=== PATIENT | female | born 1980 | race Caucasian/White ===

== ENCOUNTER → 2018-03-16 11:52 | Outpatient (CLI) | payer BC, SELFPAY ==
--- NOTE | 2018-03-16 11:59 | XR_ITS ---
XR chest 2V HISTORY: ITS.REASON: cough, SOA ORDERING PHYSICIAN: PRISCILLA Rajput PATIENT AGE: 37 years COMPARISON: None FINDINGS: The cardiomediastinal silhouette and pulmonary vascularity are within normal limits. The lungs are clear without infiltrates, suspicious nodules, or pleural effusions. Scattered small calcified granulomas are present bilaterally No acute bony abnormalities. IMPRESSION: Negative chest, no acute finding
[2018-03-16 18:05] LABS: Basophils # 0.1 K/mm3 (0-0.2); Basophils % 0.5 % (0.1-2.0); Eosinophils # 0.3 K/mm3 (0.0-0.4); Eosinophils % 3.1 % (0.1-12.0); Hematocrit 51.5 % (37.0-47.0); Hemoglobin 16.2 g/dL (12.2-16.2); Lymphocytes # 2.9 K/mm3 (0.7-4.5); Lymphocytes % 29.9 K/mm3 (10-50); Mean Corpuscular HGB Conc 31.5 g/dL (31.8-35.4); Mean Corpuscular Hemoglobin 29.6 pg (27.0-31.2); Mean Platelet Volume 9.3 fl (7.4-10.4); Monocytes # 0.5 K/mm3 (0.1-1.0); Monocytes % 5.5 % (1.7-9.3); Neutrophils # 5.9 K/mm3 (1.8-7.8); Platelet Count 346 K/mm3 (142-424); Red Blood Count 5.48 M/mm3 (4.20-5.40); Red Cell Distribution Width 14.1 % (11.5-17.5); White Blood Count 9.7 K/mm3 (4.8-10.8)
[2018-03-16 18:57] LABS: Alanine Aminotransferase 24 U/L (12-78); Albumin Level 4.1 gm/dL (3.4-5.0); Albumin/Globulin Ratio 1.2 (1.1-1.8); Alkaline Phosphatase 99 U/L (46-116); Anion Gap 20.4 mEq/L (5-15); Aspartate Amino Transferase 11 U/L (15-37); Bilirubin,Total 0.4 mg/dL (0.2-1.0); Blood Urea Nitrogen 6 mg/dL (7-18); Calcium 9.6 mg/dL (8.5-10.1); Carbon Dioxide 21 mmol/L (21.0-32.0); Chloride 105 mmol/L (98-107); Chol/HDL Ratio 3.7 (1-3.5); Cholesterol 172 mg/dL (140-200); Creatinine,Serum 0.72 mg/dL (0.55-1.02); Estimated Glomerular Filt Rate 92 ml/min (>60); GFR (African American) 111 ML/MIN (>60); Globulin 3.4 gm/dl (1.3-3.2); Glucose 139 mg/dL (74-106); HDL Cholesterol 47 mg/dL (29-89); LDL Cholesterol 105 mg/dL (0-130); Potassium 4.4 mmoL/L (3.5-5.1); Sodium 142 mmol/L (136-145); T4 (Thyroxine) 8.8 ug/dl (4.7-13.3); Thyroid Stimulating Hormone 1.14 uIU/ml (0.358-3.740); Total Protein,Serum 7.5 gm/dL (6.4-8.2); Triglycerides 101 mg/dL (30-200); VLDL Cholesterol 20 mg/dL (0-40)
[2018-03-20 05:16] LABS: Estrogen 232 pg/mL (.)
[2018-03-20 05:17] LABS: FSH 3.2 mIU/mL (.); LH 1.2 mIU/mL (.)
== END ==
LOC: LAB 11:54 → RAD 12:00
PROVIDERS: PCP Physician Assistant; Visit Provider Physician Assistant
DX: E86.0 Dehydration (principal); R05 Cough
CPT/HCPCS: 71046; 80053; 80061; 82672; 83001; 83002; 84403; 84436; 84443; 85025

== ENCOUNTER 2018-03-29 11:40 | Outpatient (RCR) | payer BC, SELFPAY | END 2018-04-05 10:10 | disposition home or self-care (01) | LOC: PT 11:40 | PROVIDERS: Family Provider Physician Assistant; PCP Physician Assistant; Visit Provider Orthopaedic Surgery | DX: S82.891A Other fracture of right lower leg, initial encounter for closed fracture (principal) | CPT/HCPCS: 97760 ==

== ENCOUNTER → 2018-04-11 14:55 | Outpatient (CLI) | payer BC, SELFPAY ==
[2018-04-11 15:30] LABS: Basophils % 0.4 % (0.1-2.0); Eosinophils # 0.1 K/mm3 (0.0-0.4); Eosinophils % 0.6 % (0.1-12.0); Hematocrit 49.3 % (37.0-47.0); Hemoglobin 16.1 g/dL (12.2-16.2); Lymphocytes % 19.2 K/mm3 (10-50); Mean Corpuscular HGB Conc 32.6 g/dL (31.8-35.4); Mean Corpuscular Hemoglobin 29.6 pg (27.0-31.2); Mean Corpuscular Volume 90.8 fl (81-99); Mean Platelet Volume 7.6 fl (7.4-10.4); Monocytes # 0.7 K/mm3 (0.1-1.0); Monocytes % 6.5 % (1.7-9.3); Neutrophils # 7.6 K/mm3 (1.8-7.8); Neutrophils % 73.3 % (37.0-80.0); Platelet Count 369 K/mm3 (142-424); Red Blood Count 5.43 M/mm3 (4.20-5.40); Red Cell Distribution Width 13.6 % (11.5-17.5); White Blood Count 10.4 K/mm3 (4.8-10.8)
[2018-04-11 16:37] LABS: Adenovirus F 40/41, stool Not Detected (NotDetected); Astrovirus Not Detected (NotDetected); Campylobacter Not Detected (NotDetected); Clostridium Difficile A/B, PCR Not Detected (NotDetected); Cryptosporidium Not Detected (NotDetected); Cyclospora Cayetanesis Not Detected (NotDetected); Entamoeba histolytica Not Detected (NotDetected); Enteroaggregative E coli Not Detected (NotDetected); Enterotoxigenic E coli Not Detected (NotDetected); Giardia lamblia Not Detected (NotDetected); Norovirus Not Detected (NotDetected); Plesimonas Shigalloides, PCR Not Detected (NotDetected); Rotavirus A Not Detected (NotDetected); Salmonella, PCR Not Detected (NotDetected); Sapovirus Not Detected (NotDetected); Shiga-like toxin E coli Not Detected (NotDetected); Shigella Enterovasive E coli Not Detected (NotDetected); Vibrio Cholerae Not Detected (NotDetected); Vibrio, PCR Not Detected (NotDetected); Yersinia Entercolitica, PCR Not Detected (NotDetected)
[2018-04-11 16:52] LABS: Erythrocyte Sedimentation Rate 10 mm/hr (0-20)
[2018-04-11 17:43] LABS: Alanine Aminotransferase 26 U/L (12-78); Albumin Level 4.3 gm/dL (3.4-5.0); Albumin/Globulin Ratio 1.2 (1.1-1.8); Alkaline Phosphatase 104 U/L (46-116); Anion Gap 18.5 mEq/L (5-15); Aspartate Amino Transferase 17 U/L (15-37); Bilirubin,Total 0.5 mg/dL (0.2-1.0); Blood Urea Nitrogen 10 mg/dL (7-18); Calcium 9.5 mg/dL (8.5-10.1); Carbon Dioxide 25 mmol/L (21.0-32.0); Chloride 99 mmol/L (98-107); Creatinine,Serum 0.71 mg/dL (0.55-1.02); Estimated Glomerular Filt Rate 93 ml/min (>60); GFR (African American) 113 ML/MIN (>60); Globulin 3.6 gm/dl (1.3-3.2); Glucose 113 mg/dL (74-106); Potassium 3.5 mmoL/L (3.5-5.1); Sodium 139 mmol/L (136-145); Total Protein,Serum 7.9 gm/dL (6.4-8.2)
[2018-04-11 20:46] LABS: Enteropathogenic E coli Detected (NotDetected)
[2018-04-14 19:16] LABS: Arsenic, Blood 7 ug/L (2-23); Lead, Blood 1 ug/dL (0-4); Mercury, Blood 1.2 ug/L (0.0-14.9)
== END ==
PROVIDERS: PCP Emergency Medicine; Visit Provider Emergency Medicine
DX: R11.2 Nausea with vomiting, unspecified (principal); R19.7 Diarrhea, unspecified
CPT/HCPCS: 80053; 82175; 83655; 83825; 85025; 85651; 87507

== ENCOUNTER → 2018-07-24 08:47 | Outpatient (CLI) | payer BC, SELFPAY ==
--- NOTE | 2018-07-24 08:50 | MR_ITS ---
MR foot RT wo con Ordering Physician: Arnaldo Ferreira Patient Age: 38 years: Female HISTORY. Fibular fracture March 2018. Has had right foot pain since then. Pain is at the lateral foot extends up towards lateral ankle joint..: .: RIGHT FOOT PAIN TECHNIQUE: Multiplanar multisequence imaging 1.5 MR. COMPARISON : March 27, 2018 right ankle 3 views FINDINGS Healing spiral fracture at the distal fibular shaft is evident.. Good position with mild residual bone edema about this healing fracture. Mild cortical thickening reflecting healing bone noted.. The . On also note Mild Bone Edema Anterior Lateral Aspect Calcaneus,--most pronounced beneath & just anterior to the angle of Gissane where there is a a Small 4-5 mm osteochondral defect &/subchondral irregularity. (Best seen on coronal image 40 sagittal slice 16,). Mild diffuse surrounding the bone edema beneath this area... Most evident extending anterior & lateral from this region.. These findings compatible with compatible with additional bone injury here at the subtalar joint.... Cortical margin otherwise remains congruent. . Cuneiforms appear intact and unremarkable. Metatarsals appear intact slight unremarkable. MTP joints intact with only borderline narrowing first MTP joint. What is seen at toes, grossly unremarkable. There is some field inhomogeneous on this scan which limits visualization of toes. Suggestion of mild pes planus on these views. Correlation required. -- . Increased fluid ankle joint. This Ankle Joint Effusion yields diffuse fluid bulging anterior to the joint,; as well as fluid extending posteriorly-surrounding the small os trigonum, & extending along the superior margin of calcaneus just posterior to the ankle joint & subtalar joint... Ankle mortise itself appears intact with normal relationships. Dome of talus intact. Only some mild chondral thinning or edema at the lateral corner talus and question of consultation along. Along lateral margin of talus. The anterior talofibular ligament thin but I believe remains intact..Although initially questionable I believe on axial image 8, 9 the anterior talofibular ligament most likely intact. ( I would note that this was a MRI of the foot rather than ankle and thus are images are not optimized for visualizing the smaller structures ).. Anteriorly the Fibular calcaneal ligament perhaps mildly thickened possibly reflecting prior injury . The posterior talofibular ligament and tibiofibular ligaments intact.. . interosseous ligament and relationships appear intact. . Medial tendons Tibialis posterior tendon appears intact.. Upper normal signal at the generous os navicularis & posterior tibialis tendon insertion.., Axial image 18,. There is some minimal fluid which follows along the flexor hallucis longus tendon beneath the foot. The tendon here itself I believe intact. Peroneal tendons . Peroneus longus not optimally seen but but I believe intact. There is suggestion of slight increased signal at the peroneus brevis tendon as it passeslateral to the calcaneus (axial image 13 & corresponding views) . Nonspecific. Could merely reflect reflect magic angle artifact rather than peroneus brevis interstitial tear/injury. Clinical correlation required here IMPRESSION: 1. Healing spiral fracture distal fibula shaft.... Good healing & Good position. Mild residual bone edema 2. Small subtalar osteochondral defect/irregularity at angle of Gissane-with surrounding bone edema at calcaneus .With this feature, bone edema most evident throughout the anterior/lateral calcaneus beneath subtalar joint, as well as minimal bone edema extending through to its its articulation with cuboid.. .This likely reflects healing additional bone injury/bone contusion at this si
== END ==
PROVIDERS: PCP Physician Assistant; Visit Provider Orthopaedic Surgery Adult Reconstructive Orthopaedic Surgery
DX: M79.671 Pain in right foot (principal)
CPT/HCPCS: 73718

== ENCOUNTER → 2019-03-06 17:09 | Outpatient (CLI) | payer BC, SELFPAY ==
[2019-03-06 19:42] LABS: Amphetamine/Metha Screen,Urine Negative ng/mL (<1000); Barbiturates Screen,Urine Negative ng/mL (<200); Benzodiazepines Screen,Urine Negative ng/mL (<200); Cannabinoid Screen,Urine Negative ng/mL (<50); Cocaine Screen,Urine Negative ng/mL (<300); Methadone Screen,Urine Negative ng/mL (<300); Opiate Screen,Urine Negative ng/mL (<300); Phencyclidine Screen,Urine Negative ng/mL (<25)
== END ==
PROVIDERS: Visit Provider Nurse Practitioner Family
DX: Z79.899 Other long term (current) drug therapy (principal)
CPT/HCPCS: 80305

== ENCOUNTER 2020-03-13 08:40 | Day surgery (SDC) | payer BC, SELFPAY ==
[2020-03-12 11:31] VITALS: BMI 32.8
[2020-03-13 10:22] VITALS: BP 112/72; PULSE 89; RESP 16; TEMP 36.2; O2SAT 100
[2020-03-13 10:28] LABS: Urine Pregnancy, HCG Qual. Negative (Negative)
--- NOTE | 2020-03-13 10:54 | P.PN_ITS ---
[facility] Anesthesia Checklist - Patient Identification Patient Identification: Arm Band - Structural Data Admitted From: Home Planned Operative Procedure/s: egd Consent for Planned Operative Procedure(s) Verified: Yes Verified Documents: Surgical Consent, History and Physical - NPO Status Verified Time NPO: 00:00 - Additional verifications Anesthesia Reactions: No - Airway Assessment C-Spine Mobility Assessed: Yes (mp2) TMJ Mobility Assessed: Yes Dentition: Good Dentition - Neurological Assessment Level of Consciousness: Awake, Alert - Anesthesia Plan Anesthesia Risk discussed: Yes Anesthesia Plan: Verified ASA Class: II Anesthesia Type: MAC [facility] History I have reviewed the patient's past medical history: Yes Medical History: Reports:: Migraine Denies:: Cancer, Diabetes Mellitus Type 1, Diabetes Mellitus Type 2, Internal Pacemaker, MRSA, Seizures *Have you ever received a pneumonia vaccine?: No *Have you received a flu vaccine this season?: No Other Medical History: Reports: Other Anesthesia experience/problems:: nac Other Surgeries: Yes: Appendectomy, Dilation and Curettage, Hysterectomy- Partial. No: Pacemaker Amputation: No Fractures: No - *Social History Last grade of school completed: Advanced degree Smoking Status: Current every day smoker Tobacco Type: cigarettes # Packs/Day (cigarettes): 1 Alcohol Intake: never Substance Use Type: denies use *Occupational Status:: employed Housing: house Household Members: spouse *Travel in the last 8 weeks: None Family Hx:: Coronary Artery Disease
[2020-03-13 11:17] LABS: Coronavirus 19 IgG Antibody Negative (Negative); Coronavirus 19 IgM Antibody Negative (Negative)
[2020-03-13 12:44] VITALS: O2SAT 97
--- NOTE | 2020-03-13 13:01 | P.PCN_ITS ---
- Procedure: Date: 03/13/20 Patient Date of :: 1980 Procedure Performed:: Esophagogastroduodenoscopy with biopsy Indications:: Reflux Sliding hiatal hernia Performing Provider:: Murphy Friedman MD Referring Provider:: . Sedation:: Monitored anesthesia care Procedure:: After informed consent was obtained the patient was taken to the endoscopy candelario te. Sedation ensued after the patient was transferred to the left lateral decubitus position. Pulse, blood pressure, and oxygen saturation were monitored throughout the procedure. The endoscope was advanced beyond the duodenal bulb. Retroflexion within the gastric lumen was accomplished. The gastroscope was carefully removed and the patient was transferred to recovery in stable condition. Please see findings and specimens below for detail. Findings:: Gastroesophageal junction 36 cm Small to moderate sliding hiatal hernia Mild gastritis Specimens:: Antral biopsy Recommendations:: Hiatal hernia did not seem to be large in overall size nor did the patient have distal esophagitis. Ongoing discussion with the patient concerning the risks and benefits of operative intervention; however, I do not recommend surgical repair of her hiatal hernia as I believe the risks to most likely outweigh the benefits. We will consider repeat barium swallow with specific focus on gastroesophageal junction if patient wishes to pursue consideration of operative intervention. Complications:: No immediate Estimated blood obtained (mL): 1
[2020-03-13 13:03] VITALS: BP 117/64; PULSE 108; RESP 18; TEMP 36.3; O2SAT 93
[2020-03-13 13:13] VITALS: BP 141/75; PULSE 103; RESP 18; TEMP 36.3; O2SAT 96
--- NOTE | 2020-03-13 13:18 | PC.NURSE ---
removed bite block
[2020-03-13 13:23] VITALS: BP 141/68; PULSE 90; RESP 18; TEMP 36.3; O2SAT 96
[2020-03-13 13:33] VITALS: BP 108/70; PULSE 97; RESP 18; TEMP 36.3; O2SAT 96
== END 2020-03-13 13:33 | disposition home or self-care (01) ==
LOC: OUTP 08:41
PROVIDERS: PCP Physician Assistant; Visit Provider Surgery
PROC: 0DJ08ZZ Inspection of Upper Intestinal Tract, Via Natural or Artificial Opening Endoscopic (ICD-10-PCS; CPT 43235; principal; 2020-03-13 10:00)
DX: K29.60 Other gastritis without bleeding (principal); K44.9 Diaphragmatic hernia without obstruction or gangrene; K21.9 Gastro-esophageal reflux disease without esophagitis; G43.909 Migraine, unspecified, not intractable, without status migrainosus; Z90.49 Acquired absence of other specified parts of digestive tract; Z90.711 Acquired absence of uterus with remaining cervical stump; Z72.0 Tobacco use; Z82.49 Family history of ischemic heart disease and other diseases of the circulatory system; Z88.8 Allergy status to other drugs, medicaments and biological substances; Z79.899 Other long term (current) drug therapy
CPT/HCPCS: 43239; 81025; 86328

== ENCOUNTER → 2020-06-11 07:49 | Outpatient (CLI) | payer BC, SELFPAY ==
--- NOTE | 2020-06-11 07:49 | US_ITS ---
PROCEDURE: US GALLBLADDER CLINICAL INDICATION: right upper quad pain COMPARISON: No exams were available for comparison FINDINGS: Pancreas: Unremarkable/Not well seen Liver: Diffuse increased echogenicity of the liver with poor through transmission of sound consistent with hepatic steatosis. No focal liver lesion demonstrated. There is appropriate direction of blood flow within non dilated portal vein. Right kidney: Unremarkable appearing. No hydronephrosis. Gallbladder: No stones are evident. There is no gallbladder wall thickening. Common duct is normal in diameter. IMPRESSION: FATTY LIVER OTHERWISE NEGATIVE Dictated by: Orville Magaña 06/11/2020 10:21 Orville Magaña in [facility] 06/11/2020 10:21
== END ==
PROVIDERS: PCP Physician Assistant; Visit Provider Surgery
DX: R10.11 Right upper quadrant pain (principal)
CPT/HCPCS: 76705

== ENCOUNTER → 2020-08-04 18:04 | Outpatient (CLI) | payer BC, SELFPAY ==
[2020-08-04 18:53] LABS: Basophils % 0.4 % (0.1-2.0); Eosinophils # 0.3 K/mm3 (0.0-0.4); Eosinophils % 2.7 % (0.1-12.0); Hematocrit 47.4 % (37.0-47.0); Hemoglobin 15.3 g/dL (12.2-16.2); Lymphocytes # 2.7 K/mm3 (0.7-4.5); Lymphocytes % 26.3 % (10-50); Mean Corpuscular HGB Conc 32.3 g/dL (31.8-35.4); Mean Corpuscular Hemoglobin 29.9 pg (27.0-31.2); Mean Corpuscular Volume 92.6 fl (81-99); Mean Platelet Volume 9.2 fl (7.4-10.4); Monocytes # 0.5 K/mm3 (0.1-1.0); Monocytes % 4.8 % (1.7-9.3); Neutrophils # 6.7 K/mm3 (1.8-7.8); Neutrophils % 65.8 % (37.0-80.0); Platelet Count 318 K/mm3 (142-424); Red Blood Count 5.12 M/mm3 (4.20-5.40); Red Cell Distribution Width 13.4 % (11.5-17.5); White Blood Count 10.2 K/mm3 (4.8-10.8)
[2020-08-04 19:28] LABS: 25-OH Vitamin D, Total 20.3 ng/mL (30-100)
[2020-08-04 20:40] LABS: Alanine Aminotransferase 45 U/L (12-78); Albumin Level 4.8 g/dl (3.5-5.0); Albumin/Globulin Ratio 1.5 (1.1-1.8); Alkaline Phosphatase 119 U/L (38-126); Aspartate Amino Transferase 37 U/L (14-36); Bilirubin,Total 0.4 mg/dl (0.2-1.3); Blood Urea Nitrogen 11 mg/dl (7-17); Calcium 9.7 mg/dl (8.4-10.2); Carbon Dioxide 24 mmol/L (22.0-30.0); Chloride 104 mmol/L (98-107); Chol/HDL Ratio 4.5 (1-3.5); Cholesterol 217 mg/dl (140-200); Estimated Glomerular Filt Rate 93 ml/min (>60); GFR (African American) 113 ML/MIN (>60); Globulin 3.1 g/dL (1.3-3.2); Glucose 86 mg/dl (74-100); HDL Cholesterol 48 mg/dl (40-60); Sodium 138 mmol/L (136-145); Total Protein,Serum 7.9 g/dl (6.3-8.2); Triglycerides 188 mg/dl (30-150); VLDL Cholesterol 38 mg/dL (0-40)
[2020-08-04 20:52] LABS: Direct LDL Cholesterol 147.45 mg/dL (100-129)
[2020-08-04 20:59] LABS: T4 (Thyroxine) 11.6 ug/dl (5.53-11.0)
[2020-08-06 08:36] LABS: FSH 2.7 mIU/mL (.); LH 3.9 mIU/mL (.); Progesterone 0.3 ng/mL (.)
[2020-08-09 04:21] LABS: Estrogen 457 pg/mL (.)
== END ==
PROVIDERS: Visit Provider Physician Assistant
DX: R07.9 Chest pain, unspecified (principal); R63.5 Abnormal weight gain; E55.9 Vitamin D deficiency, unspecified
CPT/HCPCS: 80053; 80061; 82306; 82672; 83001; 83002; 84144; 84436; 84443; 85025

== ENCOUNTER → 2020-08-19 10:15 | Outpatient (CLI) | payer BC, SELFPAY ==
--- NOTE | 2020-08-19 10:15 | NM_ITS ---
PROCEDURE: NM HEPATOBILIARY W PHARM CLINICAL INDICATION: Rt upper quad pain COMPARISON: US US GALLBLADDER from 06/11/2020 FINDINGS: 8.23 millicuries technetium Choletec was administered followed by image acquisition. Gallbladder visualization was delayed at 40 minutes post injection. Small bowel was visualized at 5 minutes, prior to visualization of the gallbladder. 2 microcuries cholecystokinin was administered intravenously. There was no pain reported by patient following administration of cholecystokinin. Patient demonstrated 77 percent at 30 minute ejection fraction, which is within normal limits. IMPRESSION: Negative for acute cholecystitis. Findings raise possibility of gallbladder or biliary dyskinesia. The rapid ejection fraction is not consistent with chronic cholecystitis. Dictated by: Nell Parmar MD 08/19/2020 15:46 Nell Parmar MD in [facility] 08/19/2020 15:46
--- NOTE | 2020-08-19 10:33 | HMH.ITSHM ---
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 []ASA ATORVASTATIN PRILOSEC METOPROLOL LORAZEPAM LEVOTHYROXINE MULTIVITAMIN
== END ==
PROVIDERS: PCP Physician Assistant; Visit Provider Surgery
DX: R10.11 Right upper quadrant pain (principal)
CPT/HCPCS: 78227; A9537; J2805

== ENCOUNTER → 2020-11-25 18:05 | Outpatient (CLI) | payer BC, SELFPAY ==
[2020-11-25 18:41] LABS: Basophils # 0.1 K/mm3 (0-0.2); Basophils % 0.6 % (0.1-2.0); Eosinophils # 0.3 K/mm3 (0.0-0.4); Eosinophils % 3.1 % (0.1-12.0); Hematocrit 44.5 % (37.0-47.0); Hemoglobin 14.8 g/dL (12.2-16.2); Lymphocytes # 2.6 K/mm3 (0.7-4.5); Lymphocytes % 26.5 % (10-50); Mean Corpuscular HGB Conc 33.3 g/dL (31.8-35.4); Mean Corpuscular Hemoglobin 30.2 pg (27.0-31.2); Mean Corpuscular Volume 90.7 fl (81-99); Mean Platelet Volume 8.9 fl (7.4-10.4); Monocytes # 0.6 K/mm3 (0.1-1.0); Monocytes % 5.5 % (1.7-9.3); Neutrophils # 6.4 K/mm3 (1.8-7.8); Neutrophils % 64.3 % (37.0-80.0); Platelet Count 318 K/mm3 (142-424); Red Blood Count 4.91 M/mm3 (4.20-5.40); White Blood Count 9.9 K/mm3 (4.8-10.8)
[2020-11-25 18:56] LABS: 25-OH Vitamin D, Total 30.8 ng/mL (30-100)
[2020-11-25 18:58] LABS: Coronavirus 19 IgG Antibody Positive (Negative); Coronavirus 19 IgM Antibody Negative (Negative)
[2020-11-25 19:45] LABS: Alanine Aminotransferase 57 U/L (12-78); Albumin Level 4.7 g/dl (3.5-5.0); Albumin/Globulin Ratio 1.7 (1.1-1.8); Alkaline Phosphatase 119 U/L (38-126); Anion Gap 13.8 mEq/L (5-15); Aspartate Amino Transferase 42 U/L (14-36); Bilirubin,Total 0.5 mg/dl (0.2-1.3); Blood Urea Nitrogen 11 mg/dl (7-17); Calcium 9.3 mg/dl (8.4-10.2); Carbon Dioxide 21 mmol/L (22.0-30.0); Chloride 105 mmol/L (98-107); Chol/HDL Ratio 4.7 (1-3.5); Cholesterol 200 mg/dl (140-200); Estimated Glomerular Filt Rate 137 ml/min (>60); GFR (African American) 166 ML/MIN (>60); Globulin 2.8 g/dL (1.3-3.2); Glucose 90 mg/dl (74-100); HDL Cholesterol 43 mg/dl (40-60); Potassium 3.8 mmoL/L (3.5-5.1); Sodium 136 mmol/L (136-145); Total Protein,Serum 7.5 g/dl (6.3-8.2); Triglycerides 165 mg/dl (30-150); VLDL Cholesterol 33 mg/dL (0-40)
[2020-11-25 19:55] LABS: Direct LDL Cholesterol 134.96 mg/dL (100-129)
[2020-11-25 20:01] LABS: T4 (Thyroxine) 10.5 ug/dl (5.53-11.0)
[2020-11-25 20:14] LABS: Thyroid Stimulating Hormone 4.43 uIU/mL (0.465-4.68)
[2020-11-28 04:10] LABS: C-Peptide 3.9 ng/mL (1.1-4.4)
== END ==
PROVIDERS: Surgery; Visit Provider Physician Assistant
DX: E03.9 Hypothyroidism, unspecified (principal); R53.83 Other fatigue; E11.9 Type 2 diabetes mellitus without complications; E66.9 Obesity, unspecified; Z68.37 Body mass index [BMI] 37.0-37.9, adult; Z79.84 Long term (current) use of oral hypoglycemic drugs; Z20.822 Contact with and (suspected) exposure to COVID-19
CPT/HCPCS: 80053; 80061; 82306; 84436; 84443; 84681; 85025; 86328

== ENCOUNTER 2021-05-10 08:56 | Emergency (ER) | payer BC, SELFPAY ==
[2021-05-10 08:57] VITALS: BP 135/79; PULSE 121; RESP 20; TEMP 37.1; O2SAT 98; BMI 34.4
--- NOTE | 2021-05-10 09:16 | CT_ITS ---
PROCEDURE INFORMATION: Exam: CT Abdomen And Pelvis Without Contrast Exam date and time: 05/10/2021 9:16 AM Age: 41 years old Clinical indication: Other: Left side flank pain; Additional info: R/O stone// kidney stone protocol TECHNIQUE: Imaging protocol: Computed tomography of the abdomen and pelvis without contrast. Radiation optimization: All CT scans at this facility use at least one of these dose optimization techniques: automated exposure control; mA and/or kV adjustment per patient size (includes targeted exams where dose is matched to clinical indication); or iterative reconstruction. COMPARISON: ABDPELW/O CT ABD PELVIS W/O CONTRAST 03/07/2015 6:32 AM FINDINGS: Liver: Fatty infiltration of the liver. Gallbladder and bile ducts: Normal. No calcified stones. No ductal dilation. Pancreas: Normal. No ductal dilation. Spleen: Normal. No splenomegaly. Adrenal glands: Normal. No mass. Kidneys and ureters: Nonobstructing left intrarenal calculi. Mild left perinephric stranding and hydronephrosis secondary to a 3-3.5 mm calculus located in the left ureter at the level of L4. Stomach and bowel: Unremarkable. No obstruction. No mucosal thickening. Appendix: No evidence of appendicitis. Intraperitoneal space: Unremarkable. No free air. No significant fluid collection. Vasculature: Unremarkable. No abdominal aortic aneurysm. Lymph nodes: Unremarkable. No enlarged lymph nodes. Urinary bladder: Unremarkable as visualized. Reproductive: Status post hysterectomy. Bones/joints: Unremarkable. No acute fracture. Soft tissues: Unremarkable. IMPRESSION: 1. Nonobstructing left intrarenal calculi. Mild left perinephric stranding and hydronephrosis secondary to a 3-3.5 mm calculus located in the left ureter at the level of L4. 2. Remainder of findings as described above.
[2021-05-10 09:23] LABS: Microscopic, Urine URINE MICROSCOPIC (MICROSCOPIC)
[2021-05-10 09:26] LABS: Basophils # 0.1 K/mm3 (0-0.2); Basophils % 1.1 % (0.1-2.0); Eosinophils # 0.4 K/mm3 (0.0-0.4); Eosinophils % 3.7 % (0.1-12.0); Hematocrit 51.6 % (37.0-47.0); Hemoglobin 16.2 g/dL (12.2-16.2); Lymphocytes # 2.4 K/mm3 (0.7-4.5); Lymphocytes % 23.5 % (10-50); Mean Corpuscular HGB Conc 31.4 g/dL (31.8-35.4); Mean Corpuscular Hemoglobin 29.9 pg (27.0-31.2); Mean Corpuscular Volume 95.1 fl (81-99); Mean Platelet Volume 9.2 fl (7.4-10.4); Monocytes # 0.5 K/mm3 (0.1-1.0); Monocytes % 4.6 % (1.7-9.3); Neutrophils # 6.8 K/mm3 (1.8-7.8); Neutrophils % 67.1 % (37.0-80.0); Platelet Count 328 K/mm3 (142-424); Red Blood Count 5.43 M/mm3 (4.20-5.40); Red Cell Distribution Width 13.5 % (11.5-17.5); White Blood Count 10.1 K/mm3 (4.8-10.8)
[2021-05-10 09:29] LABS: Appearance,Urine CLOUDY (Clear); Blood, Urine 3+ (Negative); Color,Urine STRAW (Yellow); Glucose,Urine (UA) Negative (Negative); Ketones,Urine TRACE (Negative); Leukocyte Esterase,Urine Negative (Negative); Nitrate,Urine POSITIVE (Negative); Protein,Urine 1+ (Negative); Specific Gravity, Urine >= 1.030 (1.005-1.030)
[2021-05-10 09:30] VITALS: BP 113/67; PULSE 103; RESP 20; O2SAT 97
--- NOTE | 2021-05-10 09:31 | HMH.EDGENADL ---
ED Disposition Clinical Impression: Left ureteral calculus UTI (urinary tract infection) Qualifiers: Urinary tract infection type: site unspecified Hematuria presence: with hematuria Qualified Code(s): N39.0 - Urinary tract infection, site not specified; R31.9 - Hematuria, unspecified Disposition: Home, Self-Care Condition on Discharge: Good Instructions: DI for Kidney Stones, DI for Urinary Tract Infection (UTI) Additional Instructions: Additional instructions for KIDNEY STONE (URETERAL CALCULUS): Flomax as prescribed. Percocet as needed for pain. Zofran as needed for nausea. Drink plenty of fluids. Strain your urine and save any stones you catch. Return immediately if you develop a fever or have uncontrollable vomiting or uncontrollable pain. Additional instructions for URINARY TRACT INFECTION: Take antibiotic as prescribed. See your physician in 2-3 days for follow up and culture results. Return immediately if you have fever, severe back or abdominal pain, inability to urinate, or repetitive vomiting. Follow-up with Dr. Duenas this week. Call tomorrow to make appointment. Additional instructions for CONTROLLED SUBSTANCES: You have been prescribed a medication that is a controlled substance. Controlled substances include pain medications known as opiates and sedative nerve medications known as benzodiazepines. Tramadol, fioricet, and gabapentin are also controlled substances. Some common opiates include: Codeine (such as Tylenol #3) Hydrocodone (Vicodin, Lortab, Lorcet, [place]) Oxycodone (Percocet, Percodan, Oxycodone, Oxy IR) Some common benzodiazepines include: Diazepam (Valium) Lorazepam (Ativan) Alprazolam (Xanax) Clonazepam (Klonopin) Oxazepam (Serax) All of these controlled substances are highly addictive and frequently abused. Misuse can and frequently does lead to addiction as well as overdose and . Medication should be stored in a locked cabinet or other secure storage unit. Do not store the medication in a motor vehicle. Short term supplies, 3 days or less, are prescribed because of the highly addictive nature of the medication. Any of the controlled substance medication NOT taken should be disposed of properly and NOT SAVED. The recommended method of disposing of unused medications is: Place the medicines in a sealable plastic bag. If the medicine is a solid, crush it or add water to dissolve it. Add something undesirable (cat litter, coffee grounds, etc.) Dispose of sealed bag in household trash Do not flush or pour unused medicines down a sink or drain. Controlled substances should not be shared, given away or sold. Because of the addictive nature and frequent abuse, these medications are sometimes stolen. These medications should be kept in a safe place where they cannot be stolen. Do not keep them in your car or purse. Lost or stolen prescriptions for controlled substances WILL NOT BE REFILLED in this emergency department, regardless of whether a police report was filed. Prescriptions: Oxycodone HCl/Acetaminophen [Percocet 5/325mg tablet] 1 tab PO Q6HP PRN #10 tablet PRN Reason: Moderate To Severe Pain Transmission Status: Sent to [facility] Tamsulosin HCl [Flomax 0.4mg capsule] 0.4 mg PO HS #10 cap Transmission Status: Pending to [facility] Cefdinir [Omnicef 300mg Capsule] 300 mg PO BID #20 cap Transmission Status: Pending to [facility] Ondansetron [Zofran 4mg ODT] 4 mg PO TIDP PRN #10 tab PRN Reason: Nausea And Vomiting Transmission Status: Pending to [facility] Referrals: Yaquelin Villalobos PA [Primary Care Provider] - Shayan Duenas MD [Staff Physician] - (call tomorrow) - Critical Care Critical Care Time: No Attestation: On 05/10/21, the high probability of a clinically significant, sudden or life threatening deterioration of the following system(s) required my full and direct attention, inter
[2021-05-10 09:34] LABS: Alanine Aminotransferase 30 U/L (12-78); Albumin Level 4.6 g/dl (3.5-5.0); Albumin/Globulin Ratio 1.5 (1.1-1.8); Alkaline Phosphatase 100 U/L (38-126); Anion Gap 13.6 mEq/L (5-15); Aspartate Amino Transferase 35 U/L (14-36); Bilirubin,Total 0.5 mg/dl (0.2-1.3); Blood Urea Nitrogen 8 mg/dl (7-17); Calcium 9.4 mg/dl (8.4-10.2); Carbon Dioxide 22 mmol/L (22.0-30.0); Chloride 106 mmol/L (98-107); Creatinine Clearance Estimated 236 mL/min (50-200); Estimated Glomerular Filt Rate 137 ml/min (>60); GFR (African American) 165 ML/MIN (>60); Glucose 119 mg/dl (74-100); Potassium 4.6 mmoL/L (3.5-5.1); Sodium 137 mmol/L (136-145); Total Protein,Serum 7.6 g/dl (6.3-8.2)
[2021-05-10 09:42] LABS: Bilirubin,Urine 2+ (Negative)
[2021-05-10 09:49] LABS: Bacteria,Urine 3+ /lpf; RBC,Urine TNTC #/hpf (0-3); WBC,Urine 20-50 #/hpf (0-3)
[2021-05-10 11:40] VITALS: BP 128/76; PULSE 99; RESP 18; TEMP 37.2; O2SAT 98
== END 2021-05-10 11:40 | disposition home or self-care (01) ==
PROVIDERS: Emergency Provider Emergency Medicine; PCP Physician Assistant
DX: N20.1 Calculus of ureter (principal); N39.0 Urinary tract infection, site not specified; G43.709 Chronic migraine without aura, not intractable, without status migrainosus; Z87.442 Personal history of urinary calculi
CPT/HCPCS: 74176; 80053; 81001; 85025; 87086; 96365; 96367; 96375; 99283; J2405

== ENCOUNTER 2021-06-07 08:04 | Emergency (ER) | payer BC, SELFPAY ==
[2021-06-07 08:04] VITALS: BP 130/66; PULSE 85; RESP 20; TEMP 36.7; O2SAT 95; BMI 31.3
--- NOTE | 2021-06-07 08:12 | HMH.EDGENADL ---
ED Disposition Clinical Impression: Finger laceration Qualifiers: Encounter type: initial encounter Finger: middle finger Damage to nail status: without damage Foreign body presence: without foreign body Laterality: right Qualified Code(s): S61.212A - Laceration without foreign body of right middle finger without damage to nail, initial encounter Disposition: Home, Self-Care Condition on Discharge: Good Instructions: DI for Laceration Repair Additional Instructions: Additional instructions for HAND LACERATION: Clean the wound daily with soap and water. Avoid submerging the wound. No swimming. DO NOT USE any antibiotic ointment such as Neosporin, Polysporin, or triple antibiotic. This will delay healing. Suture removal in 10 days. Return if any signs of infection including increasing pain, pus drainage, swelling, redness, red streaks, or fever. Referrals: Yaquelin Villalobos PA [Primary Care Provider] - - Critical Care Critical Care Time: No Attestation: On , the high probability of a clinically significant, sudden or life threatening deterioration of the following system(s) required my full and direct attention, intervention and personal management. The time I documented below is in addition to time spent performing reported procedures but includes the following listed in this critical care notation. Medical Decision Making - Grzegorz Inquiry Pt receiving controlled substance: No Vital Signs: 06/07/21 08:04 Temperature 98.1 F Temperature Source Oral Pulse Rate [Left Radial] 85 Respiratory Rate 20 Blood Pressure [Right Arm] 130/66 Blood Pressure Mean [Right Arm] 87 Blood Pressure Source [Right Arm] Automatic Cuff Blood Pressure Position [Right Arm] Sitting 02 Sat by Pulse Oximetry 95 Oxygen Delivery Method Room Air Orders (Tests/Meds): ED MEDICATIONS Discontinued Medications Generic Name Dose Route Start Last Admin Trade Name Freq PRN Reason Stop Dose Admin Tetanus/Reduced Diphtheria/Acell Pertussis 0.5 ml 06/07/21 08:13 Tet/Diphth/Pert-Adult 0.5ml Syringe IM 06/07/21 08:14 .ONCE ONE General Adult HPI - General Stated complaint: rt hand lac Time Seen by Provider: 06/07/21 08:12 - History of Present Illness HPI narrative: Cut right middle finger with a knife this morning. States she could not get it to stop bleeding. - Related Data Home Medications Medication Instructions Recorded Confirmed Omeprazole 40 mg PO DAILY 03/12/20 04/13/21 aspirin 81 mg tablet,delayed 81 mg PO DAILY 06/09/20 04/13/21 release Previous Rx's Medication Instructions Recorded ergocalciferol (vitamin D2) 1,250 See Rx Instructions .ROUTE 11/04/20 mcg (50,000 unit) capsule .COMPLEX #12 cap ondansetron HCl 4 mg tablet See Rx Instructions .ROUTE 11/14/20 .COMPLEX #14 tab metoprolol succinate 25 mg See Rx Instructions .ROUTE 12/16/20 tablet,extended release 24 hr .COMPLEX #30 tab famotidine 40 mg tablet 40 mg PO DAILY #30 tab 01/12/21 pantoprazole 40 mg tablet,delayed 40 mg PO DAILY #30 tab 01/12/21 release atorvastatin 10 mg tablet See Rx Instructions .ROUTE 01/19/21 .COMPLEX #30 tab liraglutide 0.6 mg/0.1 mL (18 mg/3 See Rx Instructions .ROUTE 03/18/21 mL) subcutaneous pen injector .COMPLEX #9 ml pen needle, diabetic 32 gauge x See Rx Instructions .ROUTE #100 03/19/21 1/4 each diazepam 2 mg tablet 2 mg PO BID PRN #40 tab 04/13/21 levothyroxine 50 mcg tablet 50 mcg PO DAILY #30 tab 04/13/21 cholecalciferol (vitamin D3) 25 See Rx Instructions .ROUTE 05/06/21 mcg (1,000 unit) tablet .COMPLEX #30 tablet ibuprofen 800 mg tablet See Rx Instructions .ROUTE 05/06/21 .COMPLEX #90 tab metformin 500 mg tablet,extended See Rx Instructions .ROUTE 05/06/21 release 24 hr .COMPLEX #30 tab venlafaxine 37.5 mg See Rx Instructions .ROUTE 05/06/21 capsule,extended release 24 hr .COMPLEX #30 cap Cefdinir [Omnicef 300mg Capsule] 300 mg PO BID #20 cap 05/10/21 Ondansetron [Zofran 4mg O
[2021-06-07 08:30] VITALS: BP 123/62; PULSE 76; O2SAT 97
[2021-06-07 08:44] VITALS: BP 123/62; PULSE 76; RESP 18; TEMP 36.7; O2SAT 97
== END 2021-06-07 08:49 | disposition home or self-care (01) ==
PROVIDERS: Emergency Provider Emergency Medicine; PCP Physician Assistant
DX: S61.212A Laceration without foreign body of right middle finger without damage to nail, initial encounter (principal); W26.0XXA Contact with knife, initial encounter; Y92.019 Unspecified place in single-family (private) house as the place of occurrence of the external cause; G43.709 Chronic migraine without aura, not intractable, without status migrainosus; F17.210 Nicotine dependence, cigarettes, uncomplicated; Z23 Encounter for immunization
CPT/HCPCS: 12001; 90471; 90715; 99282

== ENCOUNTER 2021-06-21 19:12 | Emergency (ER) | payer BC, SELFPAY ==
[2021-06-21 19:26] VITALS: BP 136/83; PULSE 104; RESP 22; TEMP 37.3; O2SAT 96; BMI 34.4
--- NOTE | 2021-06-21 19:58 | HMH.EDUTC ---
[facility] [place] Clinical Impression: Viral syndrome Acute bronchitis Qualifiers: Bronchitis organism: unspecified organism Qualified Code(s): J20.9 - Acute bronchitis, unspecified Disposition: Home, Self-Care Condition on Discharge: Good Instructions: Acute Bronchitis, DI for Acute Bronchitis Additional Instructions: Drink plenty of fluids. Take tylenol or ibuprofen for pain or fever. Take the medications as directed. Follow up with your regular doctor. GO TO THE ER FOR ANY WORSENING SYMPTOMS Quarantine until you know the results of your covid-19 test. If it is positive, the health department should call you and give you further instructions about your length of Quarantine and other things. Notify your school or workplace of your results and follow their instructions regarding return to work/school. Don't start the oral steroids until tomorrow, since you had the shot here today. The cough medication (promethazine dm) will make you drowsy, so don't drive or operate heavy machinery after taking it. Prescriptions: Promethazine/Dextromethorphan [Promethazine-Dm Syrup] 5 ml PO Q6HP PRN #240 ml PRN Reason: Cough Transmission Status: Received by [facility] Amoxicillin/Potassium Clav [Augmentin 875-125 Tablet] 1 tab PO Q12H 10 Days #20 tab Transmission Status: Received by [facility] methylPREDNISolone [Medrol] 4 mg PO DIRECTED 6 Days #21 packet Transmission Status: Received by [facility] guaiFENesin [Mucinex 600mg tablet] 1 - 2 tab PO BIDP PRN #30 tab PRN Reason: Congestion Transmission Status: Received by [facility] Referrals: Yaquelin Villalobos PA [Primary Care Provider] - Forms: Work/School Release Time of Disposition: 20:42 Medical Decision Making - Medical Records Medical records reviewed: No: I reviewed the patient's medical records. - Grzegorz Inquiry Pt receiving controlled substance: No Vital Signs: 06/21/21 19:26 Temperature 99.1 F Temperature Source Oral Pulse Rate [Left] 104 H Respiratory Rate 22 Blood Pressure [Right Arm] 136/83 Blood Pressure Mean [Right Arm] 100 02 Sat by Pulse Oximetry 96 - Lab Data Lab results reviewed: Yes: I reviewed the patient's lab results. Orders (Tests/Meds): ED MEDICATIONS Discontinued Medications Generic Name Dose Route Start Last Admin Trade Name Cassy PRN Reason Stop Dose Admin Methylprednisolone Sodium Succinate 125 mg 06/21/21 20:38 06/21/21 20:55 Methylprednisolone Sod Succ 125mg Vial IM 06/21/21 20:39 125 mg ONCE ONE Administration ORDERS Category Date Time Status Chest XR 2 view (NOT portable) [XR chest 2V] Stat Exams 06/21/21 20:13 Taken Covid-19 Nasal PCR ([facility]) Routine Lab 06/21/21 19:25 [place]ceived [facility] [place] - General Stated complaint: cough sob congestion Time Seen by Provider: 06/21/21 19:59 Mode of Arrival: Ambulatory Source of Information: Patient Limitations: No Limitations Description of Symptoms (Recalled from Triage Doc. by RN): pt c/o SOA and congestion. HEENT Symptoms (Recalled from RN notes): Yes (congestion) Resp Symptoms (Recalled from RN notes): Yes (cough and soa) Skin Symptoms (Recalled from RN notes): No MS Symptoms (Recalled from RN notes): No Functional Status (Recalled from RN notes): wnl - History of Present Illness Provider Complaint: She c/o cough, mild shortness of breath, low grade fever and feeling bad for the past 2 days. She has been fully vaccinated against covid-19. 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 - Related Data Home Medications Medication Instructions Recorded Confirmed Omeprazole 40 mg PO DAILY 03/12/20 04/13/21 aspirin 81 mg tablet,delayed 81 mg PO DAILY 06/09/20 04/13/21 release Previous Rx's Medication Instructions Recorded ergocalciferol (vitamin D2) 1,250 See Rx Instructions .ROUTE 11/04/20 mcg (50,000 unit) capsule .COMPLEX #12 cap
--- NOTE | 2021-06-21 20:13 | XR_ITS ---
PROCEDURE INFORMATION: Exam: XR Chest Exam date and time: 06/21/2021 8:13 PM Age: 41 years old Clinical indication: Cough and other: Congestion; Additional info: Cough, congestion TECHNIQUE: Imaging protocol: XR of the chest. Views: 2 views. COMPARISON: CR CXR2V XR chest 2V 03/16/2018 12:07 PM FINDINGS: Lungs: Calcified granulomas within the left upper lobe. Minimal left midlung zone subsegmental atelectasis or scarring. Pleural spaces: Unremarkable. No pleural effusion. No pneumothorax. Heart/Mediastinum: Normal. Bones/joints: No acute abnormality. IMPRESSION: No acute cardiopulmonary abnormality.
[2021-06-21 21:09] VITALS: BP 136/83; PULSE 104; RESP 22; TEMP 37.3
== END 2021-06-21 21:12 | disposition home or self-care (01) ==
PROVIDERS: Emergency Provider Nurse Practitioner Family; PCP Physician Assistant
DX: J20.9 Acute bronchitis, unspecified (principal); B34.9 Viral infection, unspecified; G43.709 Chronic migraine without aura, not intractable, without status migrainosus; F17.210 Nicotine dependence, cigarettes, uncomplicated; Z20.822 Contact with and (suspected) exposure to COVID-19
CPT/HCPCS: 71046; 96372; 99202; C9803; G0463; U0003; U0005

== ENCOUNTER → 2021-08-05 18:06 | Outpatient (CLI) | payer BC, SELFPAY ==
[2021-08-05 17:52] LABS: Amphetamine/Metha Screen,Urine Negative ng/ml (<1000)
[2021-08-05 17:53] LABS: Benzodiazepines Screen,Urine Positive ng/ml (<200); Cannabinoid Screen,Urine Negative ng/ml (<50)
[2021-08-05 17:54] LABS: Barbiturates Screen,Urine Negative ng/ml (<200)
[2021-08-05 17:55] LABS: Cocaine Screen,Urine Negative ng/ml (<300); Methadone Screen,Urine Negative ng/ml (<300)
[2021-08-05 17:56] LABS: Opiate Screen,Urine Negative ng/ml (<300); Phencyclidine Screen,Urine Negative ng/ml (<25)
== END ==
PROVIDERS: Visit Provider Physician Assistant
DX: Z79.899 Other long term (current) drug therapy (principal)
CPT/HCPCS: 80305

== ENCOUNTER → 2021-12-22 12:30 | Outpatient (CLI) | payer BC, SELFPAY ==
--- NOTE | 2021-12-22 12:35 | XR_ITS ---
FINAL REPORT CLINICAL HISTORY: Pain of the fifth, possible fracture FINDINGS: RIGHT TOES 3 views were obtained. There is no acute fracture or dislocation. There is mild hallux valgus deformity. There are mild degenerative changes in the 1st MTP joint. There is no soft tissue abnormality. IMPRESSION: No acute bony abnormality. Reviewed, Interpreted and Dictated by Ronaldo Hastings III, MD Transcribed by Karyna Phelan Authenticated and [facility]
== END ==
PROVIDERS: PCP Physician Assistant; Visit Provider Physician Assistant
DX: M79.676 Pain in unspecified toe(s) (principal)
CPT/HCPCS: 73660

== ENCOUNTER → 2022-03-24 16:42 | Outpatient (CLI) | payer BC, SELFPAY | PROVIDERS: PCP Physician Assistant; Visit Provider Physician Assistant | DX: R05.9 Cough, unspecified (principal); J02.9 Acute pharyngitis, unspecified ==

== ENCOUNTER → 2022-07-26 14:00 | Outpatient (CLI) | payer BC, SELFPAY ==
[2022-07-26 18:49] LABS: Alanine Aminotransferase 36 U/L (12-78); Albumin Level 4.3 g/dl (3.5-5.0); Albumin/Globulin Ratio 1.6 (1.1-1.8); Alkaline Phosphatase 100 U/L (38-126); Anion Gap 13.9 mEq/L (5-15); Aspartate Amino Transferase 33 U/L (14-36); Bilirubin,Total 0.3 mg/dl (0.2-1.3); Blood Urea Nitrogen 7 mg/dl (7-17); Calcium 8.9 mg/dl (8.4-10.2); Carbon Dioxide 25 mmol/L (22.0-30.0); Chloride 106 mmol/L (98-107); Chol/HDL Ratio 4.4 (1-3.5); Cholesterol 167 mg/dl (140-200); Estimated Glomerular Filt Rate 136 ml/min (>60); GFR (African American) 165 ML/MIN (>60); Globulin 2.7 g/dL (1.3-3.2); Glucose 84 mg/dl (74-100); HDL Cholesterol 38 mg/dl (40-60); Potassium 3.9 mmoL/L (3.5-5.1); Sodium 141 mmol/L (136-145); Triglycerides 189 mg/dl (30-150); VLDL Cholesterol 38 mg/dL (0-40)
[2022-07-26 19:01] LABS: C-Reactive Protein 5.4 mg/L (0-4); Direct LDL Cholesterol 105.89 mg/dL (100-129)
[2022-07-26 19:04] LABS: Basophils # 0.1 K/mm3 (0-0.2); Basophils % 1.3 % (0.1-2.0); Eosinophils # 0.3 K/mm3 (0.0-0.4); Eosinophils % 3.2 % (0.1-12.0); Hematocrit 44.6 % (37.0-47.0); Hemoglobin 14.7 g/dL (12.2-16.2); Lymphocytes # 2.4 K/mm3 (0.7-4.5); Lymphocytes % 27.1 % (10-50); Mean Corpuscular Hemoglobin 29.2 pg (27.0-31.2); Mean Corpuscular Volume 88.5 fl (81-99); Mean Platelet Volume 9.2 fl (7.4-10.4); Monocytes # 0.4 K/mm3 (0.1-1.0); Monocytes % 4.9 % (1.7-9.3); Neutrophils # 5.7 K/mm3 (1.8-7.8); Neutrophils % 63.4 % (37.0-80.0); Platelet Count 338 K/mm3 (142-424); Red Blood Count 5.04 M/mm3 (4.20-5.40); Red Cell Distribution Width 13.8 % (11.5-17.5); White Blood Count 8.9 K/mm3 (4.8-10.8)
[2022-07-26 19:06] LABS: 25-OH Vitamin D, Total 30.2 ng/mL (30-100)
[2022-07-26 19:07] LABS: T4 (Thyroxine) 9.6 ug/dl (5.53-11.0)
[2022-07-26 19:09] LABS: Erythrocyte Sedimentation Rate 11 mm/hr (0-20)
[2022-07-26 19:20] LABS: Thyroid Stimulating Hormone 2.45 uIU/mL (0.465-4.68)
[2022-07-26 19:40] LABS: Vitamin B12 530 pg/mL (239-931)
[2022-07-26 20:43] LABS: Ferritin 24.8 ng/ml (6.24-137)
[2022-07-28 10:15] LABS: FSH 11.2 mIU/mL (.); LH 4.9 mIU/mL (.); Progesterone 0.1 ng/mL (.); Testosterone,Total 15 ng/dL (4-50)
[2022-07-28 14:20] LABS: Anti-Cyclic Citrullinated Pept 3 units (0-19); RA Latex Turbid. <10.0 IU/mL (<14.0)
[2022-07-28 17:26] LABS: Anti-Centromere B Antibodies <0.2 AI (0.0-0.9); Anti-DNA (DS) Ab Qn <1 IU/mL (0-9); Anti-Jo-1 <0.2 AI (0.0-0.9); Anti-Smith Antibody <0.2 AI (0.0-0.9); Antichromatin Antibodies <0.2 AI (0.0-0.9); Antiscleroderma-70 Antibodies <0.2 AI (0.0-0.9); RNP Antibodies <0.2 AI (0.0-0.9); Sjogren's Anti-SS-A <0.2 AI (0.0-0.9); Sjogren's Anti-SS-B <0.2 AI (0.0-0.9)
[2022-07-30 22:26] LABS: Estrogen 81 pg/mL (.)
== END ==
PROVIDERS: PCP Physician Assistant; Visit Provider Physician Assistant
DX: M25.50 Pain in unspecified joint (principal); R45.86 Emotional lability; R45.89 Other symptoms and signs involving emotional state; E66.9 Obesity, unspecified; Z68.37 Body mass index [BMI] 37.0-37.9, adult
CPT/HCPCS: 80053; 80061; 82306; 82607; 82672; 82728; 83001; 83002; 84144; 84403; 84436; 84443; 85025; 85651; 86140; 86200; 86225; 86235; 86431

== ENCOUNTER 2022-09-06 01:19 | Emergency (ER) | payer BC, SELFPAY ==
[2022-09-06 01:20] VITALS: BP 143/83; PULSE 120; RESP 20; TEMP 36.8; O2SAT 96; BMI 34.4
--- NOTE | 2022-09-06 01:26 | ECG_ITS ---
APPROVED REPORT Exam: Resting ECG HR:119 bpm ECG Measurements Heart Rate 119 AXES ME 132 P 65 QRSd 79 QRS 76 QT 310 T 64 QTc 380 Conclusion SINUS TACHYCARDIA ABNORMAL RHYTHM ECG UNCONFIRMED REPORT Electronically signed by : Yoni Hayes MD 09/06/2022 21:02:04
[2022-09-06 01:33] VITALS: BMI 34.4
--- NOTE | 2022-09-06 01:34 | XR_ITS ---
PROCEDURE INFORMATION: Exam: XR Chest Exam date and time: 09/06/2022 1:33 AM Age: 42 years old Clinical indication: Cough TECHNIQUE: Imaging protocol: Radiologic exam of the chest. Views: 2 views. COMPARISON: CR XR CHEST 2V 06/21/2021 8:09 PM FINDINGS: Lungs: There is somewhat nodular airspace disease in the lateral left upper lung zone just inferior to a calcified granuloma in this region. Pleural spaces: Unremarkable. No pleural effusion. No pneumothorax. Heart/Mediastinum: Unremarkable. No cardiomegaly. Vasculature: Unremarkable. Bones/joints: Unremarkable. Other findings: Several scattered calcified granulomata are noted. IMPRESSION: Suspected left upper lobe pneumonia.
[2022-09-06 01:39] LABS: Coronavirus 19, PCR Not Detected (NotDetected); Influenza A, PCR Not Detected (NotDetected); Influenza B, PCR Not Detected (NotDetected)
--- NOTE | 2022-09-06 01:41 | PC.NURSE ---
patient gone to RAD at this time.
[2022-09-06 01:42] LABS: Basophils # 0.1 K/mm3 (0-0.2); Basophils % 1.5 % (0.1-2.0); Eosinophils # 0.2 K/mm3 (0.0-0.4); Eosinophils % 5.1 % (0.1-12.0); Hematocrit 42.2 % (37.0-47.0); Hemoglobin 13.8 g/dL (12.2-16.2); Lymphocytes # 1.2 K/mm3 (0.7-4.5); Lymphocytes % 29.1 % (10-50); Mean Corpuscular HGB Conc 32.6 g/dL (31.8-35.4); Mean Corpuscular Hemoglobin 29.1 pg (27.0-31.2); Mean Corpuscular Volume 89.2 fl (81-99); Mean Platelet Volume 8.9 fl (7.4-10.4); Monocytes # 0.2 K/mm3 (0.1-1.0); Monocytes % 4.6 % (1.7-9.3); Neutrophils # 2.6 K/mm3 (1.8-7.8); Neutrophils % 59.7 % (37.0-80.0); Platelet Count 194 K/mm3 (142-424); Red Blood Count 4.73 M/mm3 (4.20-5.40); Red Cell Distribution Width 14.1 % (11.5-17.5); White Blood Count 4.3 K/mm3 (4.8-10.8)
[2022-09-06 01:43] LABS: Chloride 108 mmol/L (98-107); Potassium 3.8 mmoL/L (3.5-5.1); Sodium 128 mmol/L (136-145)
--- NOTE | 2022-09-06 01:44 | PC.NURSE ---
patient back from [facility] at this time.
[2022-09-06 01:46] LABS: Alanine Aminotransferase 89 U/L (12-78); Albumin Level 3.9 g/dl (3.5-5.0); Albumin/Globulin Ratio 1.3 (1.1-1.8); Alkaline Phosphatase 123 U/L (38-126); Anion Gap 0.8 mEq/L (5-15); Aspartate Amino Transferase 59 U/L (14-36); Bilirubin,Total 0.3 mg/dl (0.2-1.3); Blood Urea Nitrogen 7 mg/dl (7-17); Carbon Dioxide 23 mmol/L (22.0-30.0); Creatinine Clearance Estimated 233 mL/min (50-200); Estimated Glomerular Filt Rate 136 ml/min (>60); GFR (African American) 165 ML/MIN (>60); Total Protein,Serum 6.9 g/dl (6.3-8.2)
[2022-09-06 01:47] LABS: Calcium 8.1 mg/dl (8.4-10.2); Glucose 121 mg/dl (74-100)
[2022-09-06 01:52] LABS: C-Reactive Protein 19.1 mg/L (0-4)
[2022-09-06 02:05] LABS: Erythrocyte Sedimentation Rate 17 mm/hr (0-20)
[2022-09-06 02:16] LABS: Procalcitonin 0.057 ng/mL (0.0-2.0)
--- NOTE | 2022-09-06 02:57 | CT_ITS ---
PROCEDURE INFORMATION: Exam: CTA Chest With Contrast Exam date and time: 09/06/2022 3:17 AM Age: 42 years old Clinical indication: Cough and dyspnea; Chest wall pain; Additional info: SOA, cough, abn cxr TECHNIQUE: Imaging protocol: Computed tomographic angiography of the chest with contrast. 3D rendering (Not supervised by radiologist): MIP and/or 3D reconstructed images were created by the technologist. Radiation optimization: All CT scans at this facility use at least one of these dose optimization techniques: automated exposure control; mA and/or kV adjustment per patient size (includes targeted exams where dose is matched to clinical indication); or iterative reconstruction. Contrast material: ISOVUE; Contrast volume: 70 ml; Contrast route: INTRAVENOUS (IV); REPORTING DATA: Count of CT and Cardiac NM exams in prior 12 months: This patient has received 0 known CTs and 0 known cardiac nuclear medicine studies in the 12 months prior to the current study. COMPARISON: CR XR CHEST 2V 09/06/2022 1:33 AM FINDINGS: Pulmonary arteries: No pulmonary emboli are identified. Aorta: Unremarkable. No aortic aneurysm. No aortic dissection. Lungs: Multifocal patchy nodular infiltrate, greatest in the left upper lobe. Few small calcified granulomas seen in the lungs bilaterally. Pleural spaces: Unremarkable. No pneumothorax. No pleural effusion. Heart: Unremarkable. No cardiomegaly. No pericardial effusion. Coronary arteries: No coronary artery calcification. Lymph nodes: Small calcified hilar lymph nodes, suggestive of old granulomatous disease. Liver: Hepatic steatosis. Spleen: Tiny calcified granuloma in the spleen. Bones/joints: Unremarkable. No acute fracture. Soft tissues: Unremarkable. IMPRESSION: 1. Multifocal patchy nodular infiltrate, greatest in the left upper lobe. Multifocal pneumonia. 2. No pulmonary emboli are identified. 3. Sequelae of old granulomatous disease, as noted above. 4. Hepatic steatosis.
--- NOTE | 2022-09-06 02:57 | PC.NURSE ---
rounded on pt at this time with MD. Results and POC discussed with pt. Pt agreeable with POC and VO given for 4mg of morphine and 4mg of zofran
--- NOTE | 2022-09-06 03:13 | PC.NURSE ---
patient gone to RAD at this time.
--- NOTE | 2022-09-06 03:21 | PC.NURSE ---
patient back from [facility] at this time.
--- NOTE | 2022-09-06 04:21 | PC.NURSE ---
Updated pt that CT was back and was was reviewing results. PT up to bathroom at this time.
--- NOTE | 2022-09-06 04:25 | PC.NURSE ---
speaking with hospitalist for poss. admission
--- NOTE | 2022-09-06 04:29 | HMH.EDSOB ---
Discharge Plan Disposition Patient Disposition: Admitted as Observation Chief Complaint: Shortness of Breath/Dyspnea Clinical Impressions Clinical Impression: Community acquired pneumonia, SIRS (systemic inflammatory response syndrome) Discharge ED Provider: Judah (ED)Bud Resp/SOB HPI General Chief Complaint: Shortness of Breath/Dyspnea Stated Complaint: cough, soa, rib pain Time Seen by Provider: 09/06/22 03:00 Mode of Arrival: Ambulatory Source of Information: Patient, Relative and Medical Record Limitations: No Limitations Description of Symptoms (Recalled from ER Triage Doc. by RN): Pt advises around she started having a tickle in her throat and then on Tuesday she started to become SOA with bilateral rib/lung pain. Pt advises she has also had a headache and just feels like she has gotten progressively worse. Also c/o dry hacky cough but denies coughing anything up at this time. Pt has tried multiple different options at home including, breathing treatments, inhaler, mucinex with little to no relief. History of Present Illness pt with progressive sob and cough with pleuritic chest pain MD Complaint: shortness of breath, cough, pain with inspiration and chest pain Onset (ago): day(s) Severity: moderate Associated symptoms: cough Related Data Home oxygen amount: none Home Medications Medication Instructions Recorded Confirmed metoprolol succinate 50 mg 50 mg PO DAILY 08/05/21 07/26/22 tablet,extended release 24 hr atorvastatin 10 mg tablet See Rx Instructions .Route 09/06/22 09/06/22 .COMPLEX High cholesterol ibuprofen 800 mg tablet See Rx Instructions .Route 09/06/22 09/06/22 .COMPLEX Pain levothyroxine 50 mcg tablet See Rx Instructions .Route 09/06/22 09/06/22 .COMPLEX hypothyroid liraglutide 0.6 mg/0.1 mL (18 mg/3 See Rx Instructions .Route 09/06/22 09/06/22 mL) subcutaneous pen injector .COMPLEX Diabetes (Victoza 3-Sen) metformin 500 mg tablet,extended 500 mg PO DAILY Diabetes 09/06/22 09/06/22 release 24 hr quetiapine 50 mg tablet,extended 50 mg PO HS sleep 09/06/22 09/06/22 release 24 hr (Seroquel XR) venlafaxine 37.5 mg See Rx Instructions .Route 09/06/22 09/06/22 capsule,extended release 24 hr .COMPLEX mood Previous Rx's Medication Instructions Recorded albuterol sulfate 90 mcg/actuation 2 puff inhalation Q4-6H PRN 05/20/22 aerosol inhaler (ProAir HFA) shortness of breath or wheezing #8.5 grams pen needle, diabetic 32 gauge x #100 ea 05/20/22 1/4 (Comfort EZ Pen Coggon) omeprazole 40 mg capsule,delayed 40 mg PO DAILY GERD #90 caps 06/14/22 release Allergies Allergy/AdvReac Type Severity Reaction Status Date / Time sumatriptan [From IMITREX] Allergy Unknown I-ITCHING Verified 07/26/22 13:12 Well's Criteria PE Score Clinical signs/symptoms of DVT: No PE is #1 diagnosis or equally likely: Yes Heart rate is > 100: Yes Immobile at least 3 days, or surgery in past 4 wks: No Previously, obj. diagnosed PE or DVT: No Hemoptysis: No Malignancy w/Rx within 6mo, or palliative: No PE Score: 4 Risk of Pulmonary Embolism by score: >3 pts=Hi Risk (78%) [facility] Disclaimer: The information contained in this section may have been updated after the patient was seen, as this information can be updated by other users. Medical History Anxiety Attention deficit hyperactivity disorder (ADHD) Cough Hypothyroidism Obesity Tobacco dependence Social History Smoking Status: Current every day smoker tobacco type: cigarettes packs per day: 1 alcohol intake: current substance use type: denies use current occupational status: employed Travel in the last 8 weeks: None household members: spouse housing: house current occupation: [employer] caffeine: Yes ROS Obtained: Yes All systems reviewed & no additional complaints except as documented
[2022-09-06 04:30] VITALS: BP 126/71; PULSE 102; RESP 23; O2SAT 94
--- NOTE | 2022-09-06 04:39 | PC.NURSE ---
[place]ton at bedside
[2022-09-06 04:48] VITALS: BP 126/71; PULSE 99; RESP 21; TEMP 36.9; O2SAT 95
--- NOTE | 2022-09-06 04:51 | EXP.HP ---
History of Present Illness *Admission Date: 09/06/22 *Reason for visit:: Cough, Shortness of air *History of present illness: Ms. Michaud is a 42-year-old female with a past medical history of COPD, chronic tobacco abuse, Hyperlipidemia, Hypothyroidism and DM. She presents to [facility] with a 2-day history of back pain, shortness of air and non-productive cough. She denies similar known sick contacts. She reports that she has been taking Mucinex and doing nebulizer treatments with worsening of symptoms. In the ER, the patient underwent a CTA of the chest that showed multi-focal nodular opacities, worse in the left upper lobe. Na level was 128. AST and ALT were elevated at 59 and 89. Covid and Flu testing were negative. The patient will be admitted with initial impression: Community Acquired Pneumonia and Hyponatremia. She will be placed on iv antibiotics, cultures will be drawn. She appears hypovolemic on exam, Fluids will be started, urine for sodium and urine osmolality will be obtained. The plan of care was discussed with the patient on admission in the ER. She verbalized agreement and understanding with the plan of care. [facility] Disclaimer: The information contained in this section may have been updated after the patient was seen, as this information can be updated by other users. Medical History Anxiety Attention deficit hyperactivity disorder (ADHD) Cough Hypothyroidism Obesity Tobacco dependence Social History Smoking Status: Current every day smoker tobacco type: cigarettes packs per day: 1 alcohol intake: current substance use type: denies use current occupational status: employed Travel in the last 8 weeks: None household members: spouse housing: house current occupation: [employer] caffeine: Yes Review of Systems Review of Systems Review of systems:: pertinent systems reviewed and negative unless documented below Constitutional Constitutional: Reports body ache(s) Eyes Eyes: Reports system reviewed and no additional complaints, except as documented ENT Ears, Nose, Mouth, and Throat: Reports system reviewed and no additional complaints, except as documented *Cardiovascular Cardiovascular: Reports system reviewed and no additional complaints, except as documented and Reports dyspnea *Respiratory Respiratory: Reports cough and Reports dyspnea *Gastrointestinal Gastrointestinal: Reports system reviewed and no additional complaints, except as documented *Genitourinary Genitourinary: Reports system reviewed and no additional complaints, except as documented *Musculoskeletal Musculoskeletal: Reports back pain and Reports myalgias Integumentary/Breasts Skin/Breast: Reports system reviewed and no additional complaints, except as documented *Neurologic Neurologic: Reports system reviewed and no additional complaints, except as documented Psychiatric Psychiatric: Reports system reviewed and no additional complaints, except as documented Endocrine Endocrine: Reports system reviewed and no additional complaints, except as documented Hematologic/Lymphatic Hematologic/Lymphatic: Reports system reviewed and no additional complaints, except as documented Allergic/Immunologic Allergic/Immunologic: Reports system reviewed and no additional complaints, except as documented Meds Home Medications and Allergies Home Medications Medication Instructions Recorded Confirmed Type metoprolol succinate 50 mg 50 mg PO DAILY blood pressure 08/05/21 09/06/22 History tablet,extended release 24 hr albuterol sulfate 90 mcg/actuation 2 puff inhalation Q4-6H PRN 05/20/22 09/06/22 Rx aerosol inhaler (ProAir HFA) shortness of breath or wheezing #8.5 grams omeprazole 40 mg capsule,delayed 40 mg PO DAILY GERD #90 caps 06/14/22 09/06/22 Rx release atorvastatin 10 mg tablet See Rx In
--- NOTE | 2022-09-06 04:58 | PC.NURSE ---
Pt arrived to floor via wheelchair @ [id number]
[2022-09-06 05:00] VITALS: BP 144/90; PULSE 97; RESP 22; TEMP 36.9; O2SAT 94; BMI 36.3
[2022-09-06 06:12] VITALS: PULSE 97; PULSE 99
--- NOTE | 2022-09-06 07:31 | HMH.PHAINT1 ---
Pharmacy Intervention Comments: MEDICATION RECONCILIATION COMPLETED ON PATIENT USING EXTERNAL FILL HISTORY FROM PHARMACY AND NANCIE REPORT. -CHLOE WILLIS, THUYD
--- NOTE | 2022-09-06 07:45 | PC.NURSE ---
Patient states, I want a new IV this one is in a bad spot and its burning up in my forearm. We lost the IV from the ER because they had to float it in. Flushed the line with a saline flush, no issues. Asked the patient if we could try a slower rate on the infusion of antibiotics. At first, she agreed then proceeded with saying, just stop it I can't stand the burn . At the patients request, antibiotic stopped. The antibiotic had less than 20ml to complete the infusion. Patient states, I want a new IV. Patient agreed to let the IV rest after the flush, will attempt to reconnect maintenance fluids in approximately 30 minutes. Did educate the patient on the side effects and potential burning of the azithromycin infusion.
[2022-09-06 08:00] VITALS: BP 135/71; PULSE 108; RESP 18; TEMP 37.1; O2SAT 95
--- NOTE | 2022-09-06 09:24 | EXP.DC.SUM ---
General Admission date:: 09/06/22 Discharge date: 09/06/22 HPI HPI HPI: Ms. Michaud is a 42-year-old female with a past medical history of COPD, chronic tobacco abuse, Hyperlipidemia, Hypothyroidism and DM. She presents to [facility] with a 2-day history of back pain, shortness of air and non-productive cough. She denies similar known sick contacts. She reports that she has been taking Mucinex and doing nebulizer treatments with worsening of symptoms. In the ER, the patient underwent a CTA of the chest that showed multi-focal nodular opacities, worse in the left upper lobe. Na level was 128. AST and ALT were elevated at 59 and 89. Covid and Flu testing were negative. The patient will be admitted with initial impression: Community Acquired Pneumonia and Hyponatremia. She will be placed on iv antibiotics, cultures will be drawn. She appears hypovolemic on exam, Fluids will be started, urine for sodium and urine osmolality will be obtained. The plan of care was discussed with the patient on admission in the ER. She verbalized agreement and understanding with the plan of care. Hospital Course Hospital Course Hospital Course: The patient was admitted to the medical unit with continuous pulse oximetry monitoring. 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 She tolerated her IV antibiotic therapy with no adverse events. She received fluid resuscitation. She described a croupy cough with no sputum production. Nursing staff report that she remained afebrile with stable vital signs and saturated appropriately on room air. Her CBC identified a normal white blood cell count with stable hemoglobin hematocrit and platelets. Her serology evaluation was negative for COVID-19 and influenza. She identified improvement and inquired about discharge home. Case management evaluated the patient for home needs. Her pneumonia severity index was 51 and her curb-65 score was 0. She will be discharged on 5 days of azithromycin, nebulizer therapy and instructions to see her PCP toward the end of the week. I spent 35 minutes in [id number] time with the patient and nursing staff (Becky CRAIG) concerning the discharge process. We discussed the admitting diagnoses and hospital course. We discussed identified improvement and the patient's desire to be discharged. We reviewed inpatient studies and imaging. The patient voiced understanding on the importance of follow-up with her primary care provider. The patient plans to be compliant with the medication regimen prescribed and follow-up appointments. She understands the importance of complete cigarette smoking cessation to improve her health. She understands that she can return to the emergency department with any sudden changes or concerns. Exam Data for Last 24 hours Vital signs and Labs for Last 24 Hours: Temp Pulse Resp BP Pulse Ox 98.7 F 108 H 18 135/71 95 09/06/22 08:00 09/06/22 08:00 09/06/22 08:00 09/06/22 08:00 09/06/22 08:00 Laboratory Results - last 24 hr 09/06/22 01:27: SARS-CoV-2 (PCR) Not detected, Influenza A Untype (PCR) Not detected, Influenza Type B (PCR) Not detected 09/06/22 01:30: WBC 4.3 L, RBC 4.73, Hgb 13.8, Hct 42.2, MCV 89.2, MCH 29.1, MCHC 32.6, RDW 14.1, Plt Count 194, MPV 8.9, Neut % (Auto) 59.7, Lymph % (Auto) 29.1, [place] % (Auto) 4.6, Eos % (Auto) 5.1, Baso % (Auto) 1.5, Neut # (Auto) 2.6, Lymph # (Auto) 1.2, [place] # (Auto) 0.2, Eos # (Auto) 0.2, Baso # (Auto) 0.1, ESR 17 09/06/22 01:30: Sodium 128 L, Potassium 3.8, Chloride 108 H, Carbon Dioxide 23, Anion Gap 0.8 L, BUN 7, Creatinine 0.50 L, Estimated Creat Clear 233, Estimated GFR 136, Est GFR ( Amer) 165, Glucose 121 H, Calcium 8.1 L, Total Bilirubin 0.3, AST 59 H, ALT 89 H, Alkaline Phosphatase 123, C-Reactive Protein 19.1 H, Total Protein 6.9, Albumin 3.9, Globulin 3.0, Albumin/Globul
--- NOTE | 2022-09-06 09:43 | HMH.PHAINT1 ---
Pharmacy Intervention Comments: Discussed discharge medications with patient. Patient verbalized understanding and had no questions at this time.
[2022-09-11 02:15] LABS: Hep A Ab, IgM Negative; Hepatitis B Core Antibody IgM Negative; Hepatitis B Surface Antigen Negative; Hepatitis C Antibody Non Reactive
== END 2022-09-06 10:59 | disposition home or self-care (01) ==
LOC: ER 01:26 → 2ND 04:36
PROVIDERS: Nurse Practitioner Family; Emergency Provider Emergency Medicine; PCP Physician Assistant; Visit Provider Family Medicine
DX: J18.9 Pneumonia, unspecified organism (principal); E87.1 Hypo-osmolality and hyponatremia; R74.01 Elevation of levels of liver transaminase levels; E11.9 Type 2 diabetes mellitus without complications; I10 Essential (primary) hypertension; F31.9 Bipolar disorder, unspecified; F17.210 Nicotine dependence, cigarettes, uncomplicated; Z79.899 Other long term (current) drug therapy
CPT/HCPCS: 71046; 71275; 80053; 80074; 84145; 85025; 85651; 86140; 93005; 94640; 99285; C9803; G0378; J0456; J0696; J2405; Q9967; U0003; U0005

== ENCOUNTER → 2022-11-30 16:20 | Outpatient (CLI) | payer BC, SELFPAY ==
[2022-11-30 18:47] LABS: Basophils % 0.3 % (0.1-2.0); Eosinophils # 0.3 K/mm3 (0.0-0.4); Eosinophils % 2.1 % (0.1-12.0); Hemoglobin 15.1 g/dL (12.2-16.2); Lymphocytes # 2.5 K/mm3 (0.7-4.5); Lymphocytes % 18.9 % (10-50); Mean Corpuscular Hemoglobin 29.1 pg (27.0-31.2); Mean Corpuscular Volume 90.8 fl (81-99); Mean Platelet Volume 9.5 fl (7.4-10.4); Monocytes # 0.6 K/mm3 (0.1-1.0); Monocytes % 4.5 % (1.7-9.3); Neutrophils % 74.3 % (37.0-80.0); Platelet Count 375 K/mm3 (142-424); Red Blood Count 5.18 M/mm3 (4.20-5.40); Red Cell Distribution Width 13.3 % (11.5-17.5); White Blood Count 13.4 K/mm3 (4.8-10.8)
[2022-11-30 18:59] LABS: Alanine Aminotransferase 52 U/L (12-78); Albumin Level 4.3 g/dl (3.5-5.0); Albumin/Globulin Ratio 1.5 (1.1-1.8); Alkaline Phosphatase 127 U/L (38-126); Aspartate Amino Transferase 32 U/L (14-36); Bilirubin,Total 0.2 mg/dl (0.2-1.3); Blood Urea Nitrogen 12 mg/dl (7-17); Calcium 9.2 mg/dl (8.4-10.2); Carbon Dioxide 23 mmol/L (22.0-30.0); Chloride 102 mmol/L (98-107); Chol/HDL Ratio 4.6 (1-3.5); Cholesterol 182 mg/dl (140-200); Estimated Glomerular Filt Rate 136 ml/min (>60); GFR (African American) 165 ML/MIN (>60); Globulin 2.8 g/dL (1.3-3.2); Glucose 109 mg/dl (74-100); HDL Cholesterol 40 mg/dl (40-60); Sodium 139 mmol/L (136-145); Total Protein,Serum 7.1 g/dl (6.3-8.2); Triglycerides 368 mg/dl (30-150); VLDL Cholesterol 74 mg/dL (0-40)
[2022-11-30 19:10] LABS: Direct LDL Cholesterol 108.82 mg/dL (100-129)
[2022-11-30 19:30] LABS: Thyroid Stimulating Hormone 2.96 uIU/mL (0.465-4.68)
[2022-11-30 19:43] LABS: Hemoglobin A1C 5.6 % (4.0-6.0)
[2022-12-02 08:21] LABS: FSH 5.8 mIU/mL (.); LH 4.2 mIU/mL (.); Progesterone <0.1 ng/mL (.); Testosterone,Total 8 ng/dL (4-50)
[2022-12-02 11:29] LABS: C-Peptide 9.9 ng/mL (1.1-4.4)
[2022-12-07 14:41] LABS: Estrogen 123 pg/mL (.)
== END ==
PROVIDERS: PCP Physician Assistant; Visit Provider Physician Assistant
DX: R63.5 Abnormal weight gain (principal); E03.9 Hypothyroidism, unspecified; Z68.37 Body mass index [BMI] 37.0-37.9, adult; Z79.899 Other long term (current) drug therapy
CPT/HCPCS: 80053; 80061; 82306; 82672; 83001; 83002; 83036; 83525; 84144; 84403; 84443; 84681; 85025

== ENCOUNTER → 2022-12-30 12:40 | Outpatient (CLI) | payer BC, SELFPAY ==
[2022-12-30 15:37] VITALS: BMI 41.0
== END ==
PROVIDERS: PCP Physician Assistant; Visit Provider Physician Assistant
DX: Z71.3 Dietary counseling and surveillance (principal); E88.81 Metabolic syndrome and other insulin resistance; K76.0 Fatty (change of) liver, not elsewhere classified
CPT/HCPCS: 97802

== ENCOUNTER 2023-07-21 20:44 | Outpatient (CLI) | payer SELFPAY ==
[2023-07-21 18:58] LABS: Basophils # 0.1 K/mm3 (0-0.2); Basophils % 0.6 % (0.1-2.0); Eosinophils # 0.3 K/mm3 (0.0-0.4); Eosinophils % 3.4 % (0.1-12.0); Hematocrit 48.1 % (37.0-47.0); Hemoglobin 15.9 g/dL (12.2-16.2); Lymphocytes # 2.8 K/mm3 (0.7-4.5); Mean Corpuscular Hemoglobin 30.4 pg (27.0-31.2); Mean Corpuscular Volume 92.2 fl (81-99); Mean Platelet Volume 9.8 fl (7.4-10.4); Monocytes # 0.6 K/mm3 (0.1-1.0); Monocytes % 6.6 % (1.7-9.3); Neutrophils # 4.9 K/mm3 (1.8-7.8); Neutrophils % 56.3 % (37.0-80.0); Platelet Count 302 K/mm3 (142-424); Red Blood Count 5.22 M/mm3 (4.20-5.40); Red Cell Distribution Width 13.2 % (11.5-17.5); White Blood Count 8.6 K/mm3 (4.8-10.8)
[2023-07-21 20:13] LABS: Alanine Aminotransferase 59 U/L (12-78); Albumin Level 4.5 g/dl (3.5-5.0); Albumin/Globulin Ratio 1.7 (1.1-1.8); Alkaline Phosphatase 130 U/L (38-126); Anion Gap 16.1 mEq/L (5-15); Aspartate Amino Transferase 43 U/L (14-36); Bilirubin,Total 0.4 mg/dl (0.2-1.3); Blood Urea Nitrogen 11 mg/dl (7-17); Calcium 9.2 mg/dl (8.4-10.2); Carbon Dioxide 22 mmol/L (22.0-30.0); Chloride 102 mmol/L (98-107); Chol/HDL Ratio 6.4 (1-3.5); Cholesterol 225 mg/dl (140-200); Estimated Glomerular Filt Rate 110 ml/min (>60); GFR (African American) 133 ML/MIN (>60); Globulin 2.7 g/dL (1.3-3.2); Glucose 81 mg/dl (74-100); HDL Cholesterol 35 mg/dl (40-60); Potassium 4.1 mmoL/L (3.5-5.1); Sodium 136 mmol/L (136-145); Total Protein,Serum 7.2 g/dl (6.3-8.2); Triglycerides 245 mg/dl (30-150); VLDL Cholesterol 49 mg/dL (0-40)
[2023-07-21 20:24] LABS: Direct LDL Cholesterol 152.72 mg/dL (100-129)
[2023-07-21 21:23] LABS: Thyroid Stimulating Hormone 4.79 uIU/mL (0.465-4.68)
[2023-07-23 08:35] LABS: FSH 23.3 mIU/mL (.); Progesterone <0.1 ng/mL (.); Testosterone,Total 15 ng/dL (4-50)
[2023-07-28 01:09] LABS: Estrogen 115 pg/mL (.)
== END 2023-07-21 23:59 ==
PROVIDERS: PCP Physician Assistant; Visit Provider Physician Assistant
DX: R63.5 Abnormal weight gain (principal); E66.9 Obesity, unspecified; Z68.37 Body mass index [BMI] 37.0-37.9, adult; Z79.899 Other long term (current) drug therapy
CPT/HCPCS: 80053; 80061; 82306; 82672; 83001; 83002; 84144; 84403; 84443; 85025

== ENCOUNTER 2024-01-11 08:53 | Emergency (ER) | payer OTHER, SELFPAY ==
[2024-01-11 09:00] VITALS: BP 139/105; PULSE 139; RESP 21; TEMP 36.7; O2SAT 98; BMI 35.5
[2024-01-11 09:16] VITALS: BP 134/84; TEMP 38
--- NOTE | 2024-01-11 09:17 | ED_ITS ---
Discharge Plan Disposition Patient Disposition: Home, Self-Care Condition: Good Prescriptions Prescriptions: New methylprednisolone [Medrol (Sen)] 4 mg tablets,dose pack See Rx Instructions .Route .COMPLEX 6 Days Qty: 21 0RF Rx Instructions: taper pack; wyhemfpyddrglws-xhuevyywx-DE [Bromfed DM] 2-30-10 mg/5 mL syrup 10 ml PO Q6H PRN (Reason: cold symptoms) Qty: 200 0RF amoxicillin-pot clavulanate 875-125 mg Tablet 1 tab PO Q12H Qty: 20 0RF mupirocin 2 % ointment 1 applic topical TID Qty: 22 0RF No Action omeprazole magnesium [Prilosec OTC] 20 mg Tablet,Delayed Release (Dr/Ec) 20 mg PO DAILY ibuprofen 800 mg tablet 800 mg PO Q8HP PRN (Reason: PAIN OR FEVER) Rx Instructions: TAKE ONE TABLET BY MOUTH 3 TIMES A DAY WITH FOOD OR MILK NEEDED FOR PAIN Referrals Follow up/Referrals: Yaquelin Villalobos PA [Primary Care Provider] - See instructions Activity Restrictions/Add. Instructions Additional Instructions/Restrictions: Monitor Temp, Over the counter Motrin or Tylenol as directed/as needed Tylenol every 4 hours and Motrin every 6 hours (as long as your family doctor has told you that you can take it) for fever or pain. and straight to ER if unable to lower temp less than 101.0 after medication given *Warm salt water gargles may help to soothe the throat *Throat Lozenges? *Warm fluids like tea with honey may help to soothe the throat? *Sleep elevated *Humidifier/Vaporizer Take medication as prescribed use mupirocin as prescribed Follow up IMMEDIATELY for new or worsening symptoms or no Noticeable improvement over the next 48-72 hours. 911 for difficulty breathing or swallowing Clinical Impressions Clinical Impression: Sinusitis Qualifiers: Sinusitis location: unspecified location Chronicity: unspecified Qualified Code(s): J32.9 - Chronic sinusitis, unspecified Cellulitis Qualifiers: Site of cellulitis: unspecified site Qualified Code(s): L03.90 - Cellulitis, unspecified Stand Alone Forms Stand Alone Forms: Work/School Release Instructions Patient Instructions: DI for Cellulitis -- Adult, Sinusitis, DI for Sinusitis Discharge ED Provider: [facility] [place] HPI General Stated complaint: fever, sinus pressure, body aches Mode of Arrival: Ambulatory Source of Information: Patient Limitations: No Limitations Time Seen by Provider: 01/11/24 09:17 Description of Symptoms (Recalled from Triage Doc. by RN): PATIENT C/O FEVER, BODY AND JOINT PAIN, HEADACHE, SINUS PRESSURE, AND LEFT EAR PAIN X 3 DAYS. PATIENT ALSO C/O REDNESS AND WARMTH TO RIGHT GROIN AREA HEENT Symptoms (Recalled from RN notes): Yes Resp Symptoms (Recalled from RN notes): No Skin Symptoms (Recalled from RN notes): Yes MS Symptoms (Recalled from RN notes): No Functional Status (Recalled from RN notes): WNL History of Present Illness Provider Complaint: Patient states that she hasnt felt well for the last couple of days States that she has been having sinus pain and pressure, pain and pressure in her left ear, dry cough and has a red place on her right groin from where her bathing suit that is red and a little sore States that now she is having fever and child so she came in to get checked States she took a home COVID test and it was negative and wanted to get tested for the flu Related Data Home Medications Medication Instructions Recorded Confirmed ibuprofen 800 mg tablet 800 mg PO Q8HP PRN PAIN OR FEVER 01/11/24 01/11/24 omeprazole magnesium 20 mg 20 mg PO DAILY 01/11/24 01/11/24 tablet,delayed release (Prilosec OTC) Previous Rx's Medication Instructions Recorded amoxicillin 875 mg-potassium 1 tab PO Q12H #20 tabs 01/11/24 clavulanate 125 mg tablet mspdnojmabynzxq-pzlfsgzhgdfkrgn-ZL 10 ml PO Q6H PRN cold symptoms 01/11/24 2 mg-30 mg-10 mg/5 mL oral syrup #200 mL (Bromfed DM) methylprednisolone 4 mg tablets in See Rx Instructions .Route 01/11/24 a dose pack (Medrol (Sen)) .COMPLEX 6 days #21 tabs mupirocin 2 % topical ointment 1 applic topical TID #22 grams 01/11/24 Allergies Allergy/AdvReac Type Severity Reaction Status Date / Time sumatriptan [From IMITREX] Allergy Unknown I-ITCHING Verified 07/21/23 15:51 Worker's Comp Is this a Worker's Comp case?: No [facility] Disclaimer: The information contained in this section may have been updated after the patient was seen, as this information can be updated by other users. Medical History (Updated 01/11/24 @ 09:53 by Adia Prieto APRN) Kidney stone History of gastroesophageal reflux (GERD) Migraine Hyperlipidemia Hypertension Cough Tobacco dependence Hypothyroidism Obesity Anxiety Surgical History (Updated 01/11/24 @ 09:15 by Diane Villanueva RN) History of appendectomy History of hysterectomy Family History Father Heart attack Social History Smoking Status: Current every day smoker tobacco type: cigarettes packs per day: 1 alcohol intake: current alcohol intake frequency: holidays/special occasions only substance use type: denies use current occupational status: employed Travel in the last 8 weeks: None household members: spouse housing: house current occupation: [employer] caffeine: Yes ROS Obtained: Yes All systems reviewed & no additional complaints except as documented and Yes Systems reviewed as appropriate & no additional complaints except as documented Constitutional Constitutional: Reports system reviewed and no additional complaints, except as documented, Reports as per HPI, Reports body ache, Reports chills and Reports fever(s) ENT Ears, Nose, Mouth, and Throat: Reports system reviewed and no additional complaints, except as documented, Reports as per HPI, Reports otalgia, Reports sinus pain and Reports sinus pressure Cardiovascular Cardiovascular: Reports system reviewed and no additional complaints, except as documented and Reports as per HPI Respiratory Respiratory: Reports system reviewed and no additional complaints, except as documented and Reports as per HPI Gastrointestinal Gastrointestingal: Reports system reviewed and no additional complaints, except as documented and as per HPI; Denies abdominal pain Musculoskeletal Musculoskeletal: Reports system reviewed and no additional complaints, except as documented and Reports as per HPI Integumentary/Breasts Skin/Breast: Reports system reviewed and no additional complaints, except as documented, Reports as per HPI and Reports other (redness in right groin ) Physical Exam General General appearance: alert and in no apparent distress ENT ENT exam: Present mucous membranes moist Expanded ENT Exam TM/Canal exam: Left TM: erythema and bulging Nose exam: Present sinus tenderness Respiratory Respiratory exam: Present normal lung sounds bilaterally; Absent respiratory distress or wheezes Cardiovascular Cardiovascular exam: Present regular rate, normal rhythm and tachycardia Abdominal Exam Abdominal exam: Present soft and normal bowel sounds; Absent distention or tenderness Neurological Exam Neurological exam: Present alert, oriented X3 and normal gait Skin Skin exam: Present other (redness and warmth noted to right groin area, no lumps or swelling noted) Medical Decision Making Grzegorz Inquiry Pt receiving controlled substance: No Grzegorz was queried for this patient: No Vital Signs: 01/11/24 09:00 01/11/24 09:16 Temperature 98.1 F 100.4 F H Temperature Source Oral Oral Pulse Rate [Left Brachial] 139 H Respiratory Rate 21 Blood Pressure [Left Arm] 139/105 H 134/84 Blood Pressure Mean [Left Arm] 116 100 Blood Pressure Source [Left Arm] Automatic Cuff Automatic Cuff Blood Pressure Position [Left Arm] Sitting Sitting 02 Sat by Pulse Oximetry 98 Oxygen Delivery Method Room Air Lab Data Lab results reviewed: Yes I reviewed the patient's lab results. 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
[2024-01-11 09:56] VITALS: BP 139/105; PULSE 139; RESP 21; TEMP 36.7; O2SAT 98
== END 2024-01-11 09:59 | disposition home or self-care (01) ==
PROVIDERS: Emergency Provider Nurse Practitioner; PCP Physician Assistant
DX: J01.90 Acute sinusitis, unspecified (principal); L03.314 Cellulitis of groin; H92.02 Otalgia, left ear; R09.81 Nasal congestion
CPT/HCPCS: 99212; 99214; G0463

== ENCOUNTER 2024-03-08 16:49 | Outpatient (CLI) | payer OTHER, SELFPAY ==
[2024-03-09 16:46] LABS: Basophils # 0.1 K/mm3 (0-0.2); Basophils % 0.6 % (0.1-2.0); Eosinophils # 0.2 K/mm3 (0.0-0.4); Eosinophils % 2.4 % (0.1-12.0); Hematocrit 45.8 % (37.0-47.0); Hemoglobin 14.2 g/dL (12.2-16.2); Lymphocytes % 29.9 % (10-50); Mean Corpuscular HGB Conc 31.1 g/dL (31.8-35.4); Mean Corpuscular Hemoglobin 29.7 pg (27.0-31.2); Mean Corpuscular Volume 95.4 fl (81-99); Mean Platelet Volume 8.5 fl (7.4-10.4); Monocytes # 0.7 K/mm3 (0.1-1.0); Monocytes % 6.7 % (1.7-9.3); Neutrophils # 6.1 K/mm3 (1.8-7.8); Neutrophils % 60.4 % (37.0-80.0); Platelet Count 332 K/mm3 (142-424); Red Cell Distribution Width 14.2 % (11.5-17.5)
[2024-03-09 17:27] LABS: 25-OH Vitamin D, Total 45.2 ng/mL (30-100)
[2024-03-09 18:51] LABS: Albumin Level 4.2 g/dl (3.5-5.0); Chloride 108 mmol/L (98-107); Potassium 4.3 mmoL/L (3.5-5.1); Sodium 137 mmol/L (136-145)
[2024-03-09 18:53] LABS: Alanine Aminotransferase 51 U/L (12-78); Aspartate Amino Transferase 36 U/L (14-36); Blood Urea Nitrogen 9 mg/dl (7-17); Estimated Glomerular Filt Rate 135 ml/min (>60); GFR (African American) 164 ML/MIN (>60)
[2024-03-09 18:54] LABS: Albumin/Globulin Ratio 1.6 (1.1-1.8); Alkaline Phosphatase 84 U/L (38-126); Anion Gap 9.3 mEq/L (5-15); Bilirubin,Total 0.4 mg/dl (0.2-1.3); Carbon Dioxide 24 mmol/L (22.0-30.0); Chol/HDL Ratio 4.5 (1-3.5); Cholesterol 186 mg/dl (140-200); Globulin 2.6 g/dL (1.3-3.2); Glucose 72 mg/dl (74-100); HDL Cholesterol 41 mg/dl (40-60); Total Protein,Serum 6.8 g/dl (6.3-8.2); Triglycerides 234 mg/dl (30-150); VLDL Cholesterol 47 mg/dL (0-40)
[2024-03-09 19:05] LABS: Direct LDL Cholesterol 114.61 mg/dL (100-129)
[2024-03-09 19:24] LABS: Thyroid Stimulating Hormone 4.51 uIU/mL (0.465-4.68)
== END 2024-03-08 23:59 | disposition home or self-care (01) ==
LOC: LAB.DROPOF 03-09 16:49
PROVIDERS: PCP Physician Assistant; Visit Provider Physician Assistant
DX: I10 Essential (primary) hypertension (principal); E03.9 Hypothyroidism, unspecified; K76.0 Fatty (change of) liver, not elsewhere classified; E66.9 Obesity, unspecified; Z68.37 Body mass index [BMI] 37.0-37.9, adult; F17.200 Nicotine dependence, unspecified, uncomplicated; F50.81 Binge eating disorder; F90.9 Attention-deficit hyperactivity disorder, unspecified type
CPT/HCPCS: 80050; 80053; 80061; 82306; 82533; 84443; 85025